=== PATIENT | female | born 1985 | race African-American/Black ===

== ENCOUNTER 2020-06-05 19:03 | Emergency (ER) | payer MEDICAID, OTHER ==
[~2020-06-05] VITALS: Ht 165.1 cm; Wt 66.0 kg
[2020-06-05] MEDS ORDERED: DOXY150T5 MT (19:42)
[2020-06-05] MEDS ORDERED: POLY10DR RIGHTEYE (19:43)
[2020-06-05] MEDS ORDERED: CEFTRIAXONE SODIUM 250 MG/VIAL IM ONE (19:45)
[2020-06-05] MEDS ORDERED: DOXYCYCLINE HYCLATE 100MG CAPSULE PO ONE (19:45)
[2020-06-05 21:05] VITALS: BP 115/72
== END 2020-06-05 21:37 | disposition home or self-care (01) ==
LOC: ER 19:03
DX: H10.9 Unspecified conjunctivitis (principal); Z11.3 Encounter for screening for infections with a predominantly sexual mode of transmission; F17.200 Nicotine dependence, unspecified, uncomplicated
CPT/HCPCS: 96372; 99283; J0696

== ENCOUNTER 2020-08-06 13:27 | Emergency (ER) | payer OTHER ==
[~2020-08-06] VITALS: Ht 165.1 cm; Wt 65.0 kg
[~2020-08-06 13:27] MED LIST: DOXY150T5 MT; POLY10DR RIGHTEYE
[2020-08-06 14:56] LABS: BASOPHILS % 0.5 % (0.0-2.0); EOSINOPHILS % 3.5 % (0.0-5.0); HEMATOCRIT. 32.1 % (36.0-48.0); HEMOGLOBIN. 10.3 g/dL (12.0-16.0); LYMPHOCYTES % 20.8 % (20.0-50.0); MEAN CORPUSCULAR HEMOGLOBIN 25.6 pg (28.0-32.0); MEAN CORPUSCULAR VOLUME 79.5 fL (81.0-99.0); MEAN PLATELET VOLUME 9.2 fl (7.4-10.4); MONOCYTES % 12.8 % (2.0-8.0); NEUTROPHILS % 62.4 % (40.0-76.0); PLATELET 291 x1000/uL (130-400); RED BLOOD CELL COUNT 4.04 mill/uL (4.2-5.4); RED CELL DISTRIBUTION WIDTH 15.5 % (11.6-14.6)
[2020-08-06 14:59] LABS: CHLORIDE 107 mEq/L (98-107)
[2020-08-06 15:03] LABS: ETHANOL BLOOD < 10 mg/dL
[2020-08-06 15:06] LABS: CLARITY URINE CLEAR (CLEAR); COLOR URINE YELLOW (YELLOW); KETONES URINE NEGATIVE (NEGATIVE); LEUKOCYTE ESTERASE URINE NEGATIVE (NEGATIVE); NITRITE URINE NEGATIVE (NEGATIVE); OCCULT BLOOD URINE NEGATIVE (NEGATIVE); PROTEIN URINE NEGATIVE (NEGATIVE); SPECIFIC GRAVITY URINE 1.017 (1.005-1.030); UROBILINOGEN URINE 0.2 E.U./dL (0.2-1.0)
[2020-08-06 15:10] LABS: HCG SCREEN NEGATIVE
[2020-08-06 15:19] LABS: *AMPHETAMINES SCREEN URINE NEGATIVE (NEGATIVE); *BARBITURATES SCREEN URINE NEGATIVE (NEGATIVE); *BENZODIAZEPINES SCREEN URINE NEGATIVE (NEGATIVE); *COCAINE SCREEN URINE NEGATIVE (NEGATIVE); METHADONE URINE SCREEN NEGATIVE (NEGATIVE); OPIATES URINE SCREEN NEGATIVE (NEGATIVE); PHENCYCLIDINE URINE SCREEN NEGATIVE (NEGATIVE)
[2020-08-06 15:20] LABS: CANNABINOID URINE SCREEN NEGATIVE (NEGATIVE)
[2020-08-06] MEDS ORDERED: LORAZEPAM 1MG TABLET PO ONE (17:15)
[2020-08-06] MEDS ORDERED: HALOPERIDOL 5MG TABLET PO ONE (17:15)
[2020-08-06] MEDS: OLANZAPINE 10MG TABLET PO SCH (22:43)
[2020-08-07] MEDS: OLANZAPINE 10MG TABLET PO SCH ×2 (09:14→16:56)
[2020-08-08] MEDS: OLANZAPINE 10MG TABLET PO SCH ×2 (08:51→17:49)
[2020-08-09 01:25] VITALS: BP 116/65
== END 2020-08-09 01:30 ==
LOC: ER 13:27
DX: R26.9 Unspecified abnormalities of gait and mobility (principal); F20.9 Schizophrenia, unspecified; F41.9 Anxiety disorder, unspecified; Z20.822 Contact with and (suspected) exposure to COVID-19; Z75.1 Person awaiting admission to adequate facility elsewhere
CPT/HCPCS: 36415; 80053; 80305; 80320; 81003; 81025; 84443; 84703; 85025; 99285; C9803; J1630; U0003; G0480